=== PATIENT | male | born 1980 | race Caucasian/White ===

== ENCOUNTER 2020-09-17 12:44 | Emergency (ER) | payer MEDICAID ==
[~2020-09-17] VITALS: Ht 185.4 cm; Wt 154.2 kg
[2020-09-17 13:00] VITALS: BP 127/86
[2020-09-17] MEDS ORDERED: KETOROLAC 60 MG/2 ML VIAL IM ONE (13:55)
[2020-09-17 14:25] VITALS: BP 127/86
== END 2020-09-17 14:25 | disposition home or self-care (01) ==
LOC: MED 12:44
DX: R50.9 Fever, unspecified (principal); Z20.828 Contact with and (suspected) exposure to other viral communicable diseases
CPT/HCPCS: 71045; 96372; 99283; J1885